=== PATIENT | male | born 1970 | race Caucasian/White ===

== ENCOUNTER 2019-04-14 08:07 | Emergency (ER) | payer BC ==
[2019-04-14] MEDS ORDERED: Proparacaine 0.5% Opth 15 ML BOT ONE (08:35)
[2019-04-14] MEDS ORDERED: Adacel (T-DAP) 0.5 ML SYRINGE ONE (08:35)
[2019-04-14] MEDS ORDERED: Fluorescein Opthalmic Strip ONE (09:36)
== END 2019-04-14 10:19 | disposition home or self-care (01) ==
LOC: ERS 08:07
DX: H10.12 Acute atopic conjunctivitis, left eye (principal); F17.220 Nicotine dependence, chewing tobacco, uncomplicated
CPT/HCPCS: 90471; 90715

== ENCOUNTER 2019-12-14 01:27 | Emergency (ER) | payer BC, SELFPAY ==
[2019-12-14 01:49] LABS: Bacteria/HPF None Seen HPF (None Seen); Bilirubin Negative (Negative); Blood, Urine 2+ (Negative); Clarity Turbid (Clear); Glucose, Urine (Dipstick) Normal (Negative); Leukocyte Negative Leu/uL (Negative); Nitrite Negative (Negative); Protein, Urine (Dipstick) 300 mg/dL (Neg-Trace); RBC/HPF Greater than 50 HPF (0-3); Squamous Epithelial None Seen HPF (0-3); Urobilinogen Normal mg/dL (Less than 2)
[2019-12-14 02:24] LABS: #Basophils 0.1 thou/uL (0.0-0.2); #Eosinphils 0.1 thou/uL (0.0-0.7); #Lymphocytes 1.4 thou/uL (1.20-3.40); #Monocytes 1.4 thou/uL (0.11-0.59); #Neutrophils 11.5 thou/uL (1.40-6.50); %Basophils 0.4 % (0.0-1.0); %Eosinophils 0.6 % (0.0-10.0); %Lymphocytes 9.8 % (21.0-51.0); %Monocytes 9.4 % (0.0-10.0); %Neutrophils 79.8 % (42.0-75.0); Hemoglobin 15.5 g/dL (14.0-18.0); Mean Corpuscular HGB CONC 34.1 g/dL (32.0-36.0); Mean Corpuscular Hemoglobin 30.5 pg (27.0-31.0); Mean Corpuscular Volume 89.3 fL (78.0-98.0); Mean Platelet Volume 7.9 fL (7.4-10.4); Platelet Count 247 thou/uL (130-400); RBC Distribution Width 12.6 % (11.5-14.5); Red Blood Cell (RBC) Count 5.09 mill/uL (4.70-6.10); White Blood Cell (WBC) Count 14.4 thou/uL (4.8-10.8)
[2019-12-14 02:44] LABS: Anion Gap 14 mmol/L (10-20); BUN (Urea Nitrogen) 15 mg/dL (8.9-20.6); Bilirubin, Total 0.3 mg/dL (0.2-1.2); Calc. Creatinine Clearance 0 mL/min (70-130); Calcium 10.1 mg/dL (7.8-10.44); Carbon Dioxide 26 mmol/L (22-29); Chloride 99 mmol/L (98-107); Estimated GFR-MDRD 47; Glucose 167 mg/dL (70-105); Sodium 135 mmol/L (136-145)
[2019-12-14 02:45] LABS: ALT (SGPT) 23 U/L (8-55); AST (SGOT) 17 U/L (5-34); Albumin 4.9 g/dL (3.5-5.0); Alkaline Phosphatase 65 U/L (40-110); Globulin 3.3 g/dL (2.4-3.5); Lipase 36 U/L (8-78); Protein, Total 8.2 g/dL (6.0-8.3)
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
== END 2019-12-14 06:15 | disposition home or self-care (01) ==
LOC: ERS 01:27
DX: N13.2 Hydronephrosis with renal and ureteral calculous obstruction (principal); R30.0 Dysuria; E78.5 Hyperlipidemia, unspecified; I10 Essential (primary) hypertension; F41.9 Anxiety disorder, unspecified; F32.9 Major depressive disorder, single episode, unspecified; F17.220 Nicotine dependence, chewing tobacco, uncomplicated
CPT/HCPCS: 36415; 74176; 80053; 81003; 81015; 83690; 85025; 87086; 96360; J1956